=== PATIENT | female | born 1995 | race Two or more races ===

== ENCOUNTER 2017-08-19 04:28 | Emergency (ER) | payer SELFPAY ==
[~2017-08-19] VITALS: Ht 160 cm; Wt 56.7 kg
[2017-08-19] MEDS ORDERED: IV NS 0.9% 1,000 ML BAG IV ONE ×2 (04:30→06:00)
[2017-08-19] MEDS ORDERED: ONDANSETRON HCL/PF 4 MG/2 ML VIAL IVP ONE (04:30)
--- NOTE | 2017-08-19 04:34 | NUR ---
SHILOH 80 FROM HOME FOR ETOH EPISODE OF VOMITTING X 1 ALUMINUM SIDING APPLICATOR. BS FIELD 95. PER PT HAD 5 SHOTS OF RAUL EARLIER TONIGHT. PT RESPONSIVE TO VERBAL AND PAINFUL STIMULI. RR EVEN AND UNLABORED. NO SOB NOTED. NAD NOTED. NO NVD AT THIS TIME. PT PLACED ON MONITOR. DR. BEAL AT BEDSIDE FOR EVAL. [employer] AT BEDSIDE FOR REPORT
[2017-08-19] MEDS ORDERED: ONDANSETRON HCL/PF 4 MG/2 ML VIAL ONE (04:36)
--- NOTE | 2017-08-19 06:50 | NUR ---
IV removed. Catheter intact and site benign. Pressure and 4x4 applied to site. No bleeding noted.Patient discharged to home in stable condition. Written and verbal after care instructions given. Patient verbalizes understanding of instruction.
[2017-08-19 06:51] VITALS: BP 120/74
== END 2017-08-19 06:51 | disposition home or self-care (01) ==
LOC: ER 04:30
DX: F10.129 Alcohol abuse with intoxication, unspecified (principal)
CPT/HCPCS: A4606; J2405; J7030; Z7610